=== PATIENT | male | born 1980 | race Caucasian/White ===

== ENCOUNTER → 2018-01-09 | Outpatient (CLI) | payer BC ==
--- NOTE | 2018-01-09 13:27 | Diagnostic Imaging Report ---
PROCEDURE: US Hepatic (Liver). TECHNIQUE: Multiple Real-time grayscale images were obtained over the right upper quadrant in various projections. INDICATION: Hepatitis C. FINDINGS: The liver is normal in size without focal lesions. There is no biliary ductal dilatation. The common bile duct is obscured. There is no cholelithiasis, gallbladder wall thickening, or pericholecystic fluid. The pancreas is not well-seen due to bowel gas. The right kidney is normal. There is no ascites. IMPRESSION: Unremarkable right upper quadrant ultrasound apart from obscuration of the pancreas and common bile duct due to bowel gas. Dictated by: Dictated on workstation # [id number]
== END ==
LOC: RAD 10:35
PROVIDERS: ATTEND Pediatrics
DX: B18.2 Chronic viral hepatitis C (principal)
CPT/HCPCS: 76705

== ENCOUNTER 2018-12-09 16:29 | Emergency (ER) | payer BC, MEDICAID ==
[~2018-12-09] VITALS: Ht 180.3 cm; Wt 133.8 kg
[2018-12-09] MEDS ORDERED: morphine INJ 10 MG/ML 1ML (SYR OR VIAL) IV STA (16:46)
[2018-12-09 16:52] LABS: BASOPHILS % (AUTO) 0 % (0-10); EOSINOPHILS # (AUTO) 0.3 10^3/uL (0.0-0.3); EOSINOPHILS % (AUTO) 2 % (0-10); HEMATOCRIT 46 % (40-54); HEMOGLOBIN 15.3 G/DL (13.3-17.7); LYMPHOCYTES # (AUTO) 2.8 X 10^3 (1.0-4.0); LYMPHOCYTES % (AUTO) 19 % (12-44); MEAN CORPUSCULAR HEMOGLOBIN 30 PG (25-34); MEAN CORPUSCULAR HGB CONC 34 G/DL (32-36); MEAN CORPUSCULAR VOLUME 89 FL (80-99); MEAN PLATELET VOLUME 11.3 FL (7.4-10.4); MONOCYTES # (AUTO) 0.9 X 10^3 (0.0-1.0); MONOCYTES % (AUTO) 6 % (0-12); NEUTROPHILS # (AUTO) 10.9 X 10^3 (1.8-7.8); NEUTROPHILS % (AUTO) 73 % (42-75); PLATELET COUNT 247 10^3/uL (130-400); RED CELL DISTRIBUTION WIDTH 13.6 % (10.0-14.5)
--- NOTE | 2018-12-09 16:53 | ED Chest Pain ---
General Chief Complaint: Chest Pain Stated Complaint: CHEST PAIN RADIATING TO BACK Nursing Triage Note: Patient ambulatory to room with complaint of chest pain to mid sternum radiating into the upper back. Patient describes the pain as a dull pain that is intermittent for the last several months. He states he has had a cough x 2 days that makes the chest pain worse. He did vomit x 1 yesterday due to coughing so hard. Patient states he does vape. Nursing Sepsis Screen: No Definite Risk Source: patient Exam Limitations: no limitations History of Present Illness Date Seen by Provider: Dec 09, 2018 Time Seen by Provider: 16:38 Initial Comments Here with report of central chest pain that radiates to his back and is associated with cough for the last 2 days. States that his cough and so bad that he is almost vomiting. The cough is causing headache. Notes that he's had increased blood pressure recently. Overall does not feel well. Does have history of hep C that's been cleared through meds. Also has history of hypertension. Seen in the clinic a few weeks ago and has follow-up appointment with Dr. Mai due to elevated CRP. There is also some question about increase fluid around the heart and he was given some water pills for a few days that did help. Vomited once yesterday. No fevers today. Complains of pain in the upper throat associated with cough. Timing/Duration: 2-3 days Severity/Quality: moderate, pressure, tightness Location: central Radiation: back Prior CP/Workup: echocardiography, stress test ASA po ELECTRONIC DEVICE MONITOR: No NTG SL ELECTRONIC DEVICE MONITOR: No Associated Symptoms: No abdominal pain; back pain; No diaphoresis; nausea/vomiting, shortness of breath; No weakness Allergies and Home Medications Allergies Coded Allergies: No Known Drug Allergies (Unverified , 12/09/18) Patient Home Medication List Home Medication List Reviewed: Yes Review of Systems Review of Systems Constitutional: see HPI; No chills, No fever EENTM: No Nose Congestion; Throat Pain Respiratory: Cough, Shortness of Air, Wheezing Cardiovascular: Chest Pain; Denies Edema Gastrointestinal: See HPI Genitourinary: No Symptoms Reported Musculoskeletal: see HPI Skin: no symptoms reported All Other Systems Reviewed Negative Unless Noted: Yes Past Qcmhruf-Ekhlsu-Bcqjrr Hx Past Med/Social Hx: Reviewed Nursing Past Med/Soc Hx Patient Social History Alcohol Use: Denies Use Recreational Drug Use: Yes Drug of Choice: cannibas Smoking Status: Current Everyday Smoker Type Used: Electronic/Vapor 2nd Hand Smoke Exposure: Yes Recent Foreign Travel: No Contact w/Someone Who Travel: No Recent Infectious Disease Expo: No Recent Hopitalizations: No Seasonal Allergies Seasonal Allergies: No Past Medical History Surgeries: Yes (MRSA skin ) Respiratory: No Cardiac: Yes Hypertension Neurological: No Genitourinary: No Gastrointestinal: No Musculoskeletal: No Endocrine: No HEENT: No Cancer: No Psychosocial: No Blood Disorders: No Family Medical History Reviewed Nursing Family Hx Physical Exam Vital Signs Vital Signs - First Documented 12/09/18 16:33 Temp 97.0 Pulse 80 Resp 16 B/P (MAP) 131/93 (106) Pulse Ox 99 O2 Delivery Room Air Capillary Refill : Less Than 3 Seconds Height, Weight, BMI Height: 5'11.00" Weight: 295lbs. oz. 133.890078gn; BMI Method:Stated General Appearance: WD/WN, Mild Distress HEENT: PERRL/EOMI, Pharyngeal Erythema Neck: Full Range of Motion, Normal Inspection, Non Tender, Supple Respiratory: No Respiratory Distress, Expiration, Wheezing (trace scattered) Cardiovascular: Regular Rate, Rhythm, No Murmur Gastrointestinal: Non Tender, Soft Extremity: Normal Range of Motion, Non Tender Neurologic/Psychiatric: Alert, Oriented x3 Skin: Normal Color, Warm/Dry Progress/Results/Core Measures Results/Orders Lab Results Laboratory Tests Test 12/09/18 16:35 12/09/18 18:31 Range/Units White Blood Count 15.0 H 4.3-11.0 10^3/uL Red Blood Count 5.13 4.35-5.85 10^6/uL Hemoglobin 15.3 13.3-17.7 G/DL Hematocrit 46 40-54 % Mean Corpuscular Volume 89 80-99 FL Mean Corpuscular Hemoglobin 30 25-34 PG Mean Corpuscular Hemoglobin Concent 34 32-36 G/DL Red Cell Distribution Width 13.6 10.0-14.5 % Platelet Count 247 130-400 10^3/uL Mean Platelet Volume 11.3 H 7.4-10.4 FL Neutrophils (%) (Auto) 73 42-75 % Lymphocytes (%) (Auto) 19 12-44 % Monocytes (%) (Auto) 6 0-12 % Eosinophils (%) (Auto) 2 0-10 % Basophils (%) (Auto) 0 0-10 % Neutrophils # (Auto) 10.9 H 1.8-7.8 X 10^3 Lymphocytes # (Auto) 2.8 1.0-4.0 X 10^3 Monocytes # (Auto) 0.9 0.0-1.0 X 10^3 Eosinophils # (Auto) 0.3 0.0-0.3 10^3/uL Basophils # (Auto) 0.0 0.0-0.1 10^3/uL Neutrophils % (Manual) 68 % Lymphocytes % (Manual) 19 % Monocytes % (Manual) 7 % Eosinophils % (Manual) 3 % Basophils % (Manual) 0 % Band Neutrophils 3 % Spherocytes SLIGHT Prothrombin Time 12.7 12.2-14.7 SEC INR Comment 0.9 0.8-1.4 Activated Partial Thromboplast Time 31 24-35 SEC D-Dimer 0.38 0.00-0.49 UG/ML Sodium Level 139 135-145 MMOL/L Potassium Level 3.8 3.6-5.0 MMOL/L Chloride Level 100 98-107 MMOL/L Carbon Dioxide Level 25 21-32 MMOL/L Anion Gap 14 5-14 MMOL/L Blood Urea Nitrogen 14 7-18 MG/DL Creatinine 1.36 H 0.60-1.30 MG/DL Estimat Glomerular Filtration Rate 58 BUN/Creatinine Ratio 10 Glucose Level 91 70-105 MG/DL Calcium Level 10.3 H 8.5-10.1 MG/DL Corrected Calcium 8.5-10.1 MG/DL Magnesium Level 2.1 1.6-2.4 MG/DL Total Bilirubin 0.8 0.1-1.0 MG/DL Aspartate Amino Transf (AST/SGOT) 20 5-34 U/L Alanine Aminotransferase (ALT/SGPT) 21 0-55 U/L Alkaline Phosphatase 80 40-136 U/L Myoglobin 106.1 H 75.0 10.0-92.0 NG/ML Troponin I < 0.028 < 0.028 <0.028 NG/ML C-Reactive Protein High Sensitivity 2.23 H 0.00-0.50 MG/DL B-Type Natriuretic Peptide < 10.0 <100.0 PG/ML Total Protein 9.1 H 6.4-8.2 GM/DL Albumin 5.1 H 3.2-4.5 GM/DL My Orders Orders - JACKLEINE THOMAS MD Albuterol/Ipra Inhalation Soln (Duoneb I (12/09/18 17:00) Cbc With Automated Diff (12/09/18 16:46) Magnesium (12/09/18 16:46) Chest 1 View, Ap/Pa Only (12/09/18 16:46) Ekg Tracing (12/09/18 16:46) Cardiac Profile 1 (12/09/18 16:46) Comprehensive Metabolic Panel (12/09/18 16:46) Myoglobin Serum (12/09/18 16:46) Protime With Inr (12/09/18 16:46) Partial Thromboplastin Time (12/09/18 16:46) O2 (12/09/18 16:46) Monitor-Rhythm Ecg Trace Only (12/09/18 16:46) Lipid Panel (12/10/18 06:00) Ed Iv/Invasive Line Start (12/09/18 16:46) BNP (12/09/18 16:46) Fibrin Degradation Products (12/09/18 16:46) Aspirin Chewable Tablet (Baby Aspirin Ch (12/09/18 17:00) Morphine Injection (Morphine Injection (12/09/18 16:46) Svn Small Volume Nebulizer (12/09/18 16:46) Manual Differential (12/09/18 16:35) Hs C Reactive Protein (12/09/18 17:42) Fentanyl Injection (Sublimaze Injection (12/09/18 17:42) Ketorolac Injection (Toradol Injection) (12/09/18 17:42) Ns Iv 1000 Ml (Sodium Chloride 0.9%) (12/09/18 17:42) Myoglobin Serum (12/09/18 18:20) Troponin I (12/09/18 18:20) Lortab 7.5 Mg Po (12/09/18 19:28) Vibramycin 100mg Po (12/09/18 19:28) Prednisone Tablet (Deltasone Tablet) (12/09/18 19:30) Medications Given in ED Current Medications Medications Dose Ordered Sig/Angelo Route Start Time Stop Time Status Last Admin Dose Admin Albuterol/ Ipratropium 3 ml ONCE ONCE INH 12/09/18 17:00 12/09/18 17:01 DC 12/09/18 16:54 3 ML Aspirin 324 mg ONCE ONCE PO 12/09/18 17:00 12/09/18 17:01 DC 12/09/18 17:01 324 MG Vital Signs/I&O 12/09/18 12/09/18 12/09/18 16:33 16:48 16:54 Temp 97.0 Pulse 80 Resp 16 B/P (MAP) 131/93 (106) Pulse Ox 99 97 O2 Delivery Room Air Room Air Room Air Blood Pressure Mean: 106 Progress Progress Note : Progress Note Seen and evaluated. IV, labs, EKG and chest x-ray ordered. ASA 324 mg by mouth ordered. Duo neb ordered. Morphine 2 mg IV ordered. Monitor patient. Morphine did not help his pain. Toradol 30 mg IV and fentanyl 50 g IV ordered. Normal saline 1 L bolus ordered. Monitor patient. 1834: Repeat labs ordered. Monitor patient. 1929: Patient actually doing a little better. Repeat labs negative with troponin remained negative and myoglobin decreasing. I have talked with the patient at length regarding his symptoms and findings. Likely bronchitis related given cough. We will initiate prednisone 40 mg by mouth as well as doxycycline 100 mg by mouth. Lortab 7.5 one tab by mouth given. Discharged home with return precautions. Patient verbalize understanding instructions and agreement with plan. Initial ECG Impression Date: Dec 09, 2018 Initial ECG Impression Time: 16:32 Initial ECG Rate: 78 Initial ECG Rhythm: Normal Sinus Initial ECG Comparisson: No Previous ECG Available Comment Sinus rhythm with normal axis. No evidence of ST elevation [place]. No previous available for comparison. Interpreted by me. Diagnostic Imaging Diagonstic Imaging: Xray Plain Films/CT/US/NM/MRI: chest Comments NAME: CHRISTOPHERYONATHAN Orta MED REC#: [id number] PT STATUS: REG ER : 1980 PHYSICIAN: JACKELINE THOMAS MD ADMIT DATE: 12/09/18/ER Draft Date of Exam:12/09/18 CHEST 1 VIEW, AP/PA ONLY INDICATION: Mid sternal chest pain radiating to the back. Patient reports symptoms for several months. Cough. FINDINGS: Lungs demonstrate no focal infiltrate or consolidation. There is no evidence of an effusion. There is no pneumothorax. Heart size and mediastinal contours appear appropriate. There is no mediastinal widening. The central pulmonary vascularity appears normal. There is no acute or suspicious osseous abnormality evident. IMPRESSION: 1. No radiographic evidence of an acute cardiopulmonary process. Dictated on workstation # [id number] Dict: 12/09/18 1713 Trans: 12/09/18 1716 [id number] Interpreted by: SHRUTHI LUIS MD Electronically signed by: Departure Impression Primary Impression: Bronchitis Additional Impression: Chest wall pain Disposition: ADMITTED INPATIENT Condition: Stable Departure-Patient Inst. Decision time for Depature: 19:35 Referrals: ABIMAEL REEDER (PCP/Family) Primary Care Physician Patient Instructions: Acute Bronchitis, Adult (DC), Chest Pain (DC) Add. Discharge Instructions: All discharge instructions reviewed with patient and/or family. Voiced understanding. You may take ibuprofen 800 mg every 8 hours as needed for pain. You may also take Tylenol/acetaminophen 1000 mg every 8 hours as needed for pain. Drink plenty of fluids. Take medications as directed. Follow-up with your Dr. in a few days for recheck. Return for worse pain, fever, vomiting, weakness, breathing problems or other concerns as needed. Scripts Albuterol Sulfate (PROAIR HFA) 1 Puff Puff 2 PUFF IH Q4H PRN for WHEEZING, #1 INHALER 0 Refills 1 PUFF = 90 MCG Prov: JACKELINE THOMAS MD 12/09/18 Prednisone (Prednisone) 20 Mg Tab 40 MG PO DAILY, #10 TAB 0 Refills Prov: JACKELINE THOMAS MD 12/09/18 Doxycycline Hyclate (Doxycycline Hyclate) 100 Mg Tablet 100 MG PO BID, #20 TAB 0 Refills Prov: JACKELINE THOMAS MD 12/09/18 Copy Copies To 1: GWYN ROJAS DO Copies To 2: MAGDI MAI MD, TIMOTHY D MD Dec 09, 2018 16:53
[2018-12-09] MEDS ORDERED: ASPIRIN 81 MG CHEW (CHILDREN'S ASA) PO ONE (17:00)
[2018-12-09] MEDS ORDERED: RT-ALBUTEROL/IPRATROPIUM 3 ML (DUONEB) VIAL INH ONE (17:00)
[2018-12-09 17:02] LABS: INR 0.9 (0.8-1.4); PROTHROMBIN TIME PATIENT 12.7 SEC (12.2-14.7)
[2018-12-09 17:07] LABS: ALANINE AMINOTRANSFERASE 21 U/L (0-55); ALBUMIN 5.1 GM/DL (3.2-4.5); ALKALINE PHOSPHATASE 80 U/L (40-136); BILIRUBIN,TOTAL 0.8 MG/DL (0.1-1.0); BUN/CREATININE RATIO 10; CALCIUM 10.3 MG/DL (8.5-10.1); CARBON DIOXIDE 25 MMOL/L (21-32); CHLORIDE 100 MMOL/L (98-107); CREATININE SERUM 1.36 MG/DL (0.60-1.30); GFR ESTIMATED 58; GLUCOSE 91 MG/DL (70-105); MAGNESIUM 2.1 MG/DL (1.6-2.4); POTASSIUM 3.8 MMOL/L (3.6-5.0); SODIUM 139 MMOL/L (135-145); TOTAL PROTEIN 9.1 GM/DL (6.4-8.2)
[2018-12-09 17:13] LABS: BAND NEUTROPHILS 3 %; BASOPHILS % (MANUAL) 0 %; EOSINOPHILS % (MANUAL) 3 %; LYMPHOCYTES % (MANUAL) 19 %; MONOCYTES % (MANUAL) 7 %; NEUTROPHILS % (MANUAL) 68 %
[2018-12-09 17:14] LABS: SPHEROCYTES SLIGHT
--- NOTE | 2018-12-09 17:17 | Diagnostic Imaging Report ---
INDICATION: Mid sternal chest pain radiating to the back. Patient reports symptoms for several months. Cough. FINDINGS: Lungs demonstrate no focal infiltrate or consolidation. There is no evidence of an effusion. There is no pneumothorax. Heart size and mediastinal contours appear appropriate. There is no mediastinal widening. The central pulmonary vascularity appears normal. There is no acute or suspicious osseous abnormality evident. IMPRESSION: 1. No radiographic evidence of an acute cardiopulmonary process. Dictated by: Dictated on workstation # [id number]
[2018-12-09] MEDS ORDERED: NS IV 1000 ML 1,000 ML IV STA (17:42)
[2018-12-09] MEDS ORDERED: fentaNYL INJECTION 100 MCG/2 ML AMP IVP STA (17:42)
[2018-12-09] MEDS ORDERED: KETOROLAC 30 MG/ML VIAL IVP STA (17:42)
--- NOTE | 2018-12-09 18:35 | NUR ---
Blood drawn for repeat labs.
[2018-12-09] MEDS ORDERED: HYDROcodone/APAP 7.5 MG/325 MG (LORTAB, LORCET PLUS) TABLET PO STA (19:28)
[2018-12-09] MEDS ORDERED: DOXYCYCLINE 100 MG (VIBRAMYCIN) TABLET PO STA (19:28)
[2018-12-09] MEDS ORDERED: predniSONE 20 MG TAB PO ONE (19:30)
[2018-12-09] MEDS ORDERED: DOXY100T2 PO (19:37)
[2018-12-09] MEDS ORDERED: RT-ALBUINH IH (19:37)
[2018-12-09] MEDS ORDERED: PRD20T PO (19:37)
[2018-12-09 19:41] VITALS: BP 119/75
== END 2018-12-09 19:41 | disposition home or self-care (01) ==
LOC: EDUNIT# 16:29 → ER 16:31
DX: J40 Bronchitis, not specified as acute or chronic (principal); B19.20 Unspecified viral hepatitis C without hepatic coma; I10 Essential (primary) hypertension; F17.290 Nicotine dependence, other tobacco product, uncomplicated
CPT/HCPCS: 36415; 71045; 80053; 83735; 83874; 83880; 84484; 85007; 85027; 85379; 85610; 85730; 86141; 93005; 94640; 96361; 96374; 96375

== ENCOUNTER → 2019-01-22 | Outpatient (CLI) | payer MEDICAID ==
[~2019-01-22] VITALS: Ht 71 cm; Wt 136.0 kg
[~2019-01-22] MED LIST: CATHETER FLUSH 10 ML SYR IV PRN; DOXY100T2 PO; PRD20T PO; RT-ALBUINH IH
[2019-01-22 09:31] VITALS: BP 112/77
--- NOTE | 2019-01-22 14:30 | STRESS TEST ---
DATE OF SERVICE: 01/22/2019 EXERCISE MYOVIEW STRESS TEST REFERRING PHYSICIAN: Dr. Manohar Rangle Baseline heart rate is 63, baseline blood pressure 102/79. Baseline EKG is sinus rhythm with no ischemic changes. In summary, the patient was injected with 10.43 mCi of technetium-99 Myoview and the resting images were obtained. Then, the patient started exercising with a baseline heart rate, blood pressure and EKG mentioned above. The patient exercised for a total of 8 minutes on standard Jeff protocol. With peak exercise level, EKG was showing nondiagnostic changes. Blood pressure is 172/81. The patient was injected with 28.7 mCi of technetium-99 Myoview. During recovery, heart rate and blood pressure returned to baseline. EKG returned to baseline. The resting and stress images were reviewed and compared in the short axis, horizontal long axis, and vertical long axis views. Review of the images showed diaphragmatic attenuation with typical male pattern. No significant ischemia or infarction. SSS is 0. TID value is 0.94. On the gated images, the left ventricle appeared to be normal size with normal contractility. Calculated ejection fraction is 54%. CONCLUSION: 1. Fair exercise tolerance, a total of 8 minutes on standard Jeff protocol, total of 9.5 METs achieving 90% of maximum expected heart rate. 2. Appropriate heart rate and blood pressure response to exercise returned to baseline during recovery. 3. Nondiagnostic EKG changes with exercise returned to baseline during recovery. 4. Typical male pattern with no ischemia or infarction on SPECT images. 5. Normal left ventricular size with normal contractility. Calculated ejection fraction is 54%. Job ID: [id number] DocumentID: [id number] Dictated Date: 01/22/2019 12:28:19 Business Assistant Date: 01/22/2019 14:29:37 Dictated By: MAGDI BUCIO MD
== END ==
LOC: CARD 07:39
PROVIDERS: ATTEND Internal Medicine Cardiovascular Disease
DX: I10 Essential (primary) hypertension (principal); R07.9 Chest pain, unspecified; Z72.0 Tobacco use
CPT/HCPCS: 78452; 93017; 93306

== ENCOUNTER 2019-12-12 21:14 | Outpatient (CLI) | payer MEDICAID ==
[~2019-12-12 21:14] MED LIST changes: -CATHETER FLUSH 10 ML SYR IV PRN
== END 2019-12-13 07:05 | disposition home or self-care (01) ==
LOC: SLEEP 21:14
PROVIDERS: ATTEND Nurse Practitioner Community Health
DX: G47.33 Obstructive sleep apnea (adult) (pediatric) (principal); G47.10 Hypersomnia, unspecified; G47.00 Insomnia, unspecified; G47.419 Narcolepsy without cataplexy; F39 Unspecified mood [affective] disorder; Z20.828 Contact with and (suspected) exposure to other viral communicable diseases
CPT/HCPCS: 95810

== ENCOUNTER 2023-03-03 19:33 | Emergency (ER) | payer MEDICAID, OTHER ==
[~2023-03-03] VITALS: Ht 180.3 cm; Wt 131.5 kg
[~2023-03-03 19:33] MED LIST changes: +ALBU8.5H6 IH; -RT-ALBUINH IH
[2023-03-03] MEDS ORDERED: ASPIRIN 81 MG CHEWABLE TABLET PO ONE (19:45)
[2023-03-03] MEDS ORDERED: NITROGLYCERIN 0.4 MG SL TABLETS BTL 25'S SL ONE (19:54)
[2023-03-03 19:59] LABS: BASOPHILS # (AUTO) 0.1 10^3/uL (0.0-0.1); BASOPHILS % (AUTO) 0 % (0-10); EOSINOPHILS # (AUTO) 0.1 10^3/uL (0.0-0.3); EOSINOPHILS % (AUTO) 1 % (0-10); HEMATOCRIT 45 % (40-54); LYMPHOCYTES % (AUTO) 22 % (12-44); MEAN CORPUSCULAR HEMOGLOBIN 30 pg (25-34); MEAN CORPUSCULAR HGB CONC 34 g/dL (32-36); MEAN CORPUSCULAR VOLUME 91 fL (80-99); MONOCYTES # (AUTO) 0.9 10^3/uL (0.0-1.0); MONOCYTES % (AUTO) 6 % (0-12); NEUTROPHILS # (AUTO) 9.6 10^3/uL (1.8-7.8); NEUTROPHILS % (AUTO) 70 % (42-75); PLATELET COUNT 261 10^3/uL (130-400); WHITE BLOOD COUNT 13.7 10^3/uL (4.3-11.0)
[2023-03-03] MEDS ORDERED: NITROGLYCERIN 0.4 MG SL TABLETS BTL 25'S SL PRN (20:00)
--- NOTE | 2023-03-03 20:13 | ED Chest Pain ---
General Chief Complaint: Chest Wall Stated Complaint: CHEST PAIN Nursing Triage Note: PT AMB TO [facility] 5 FROM [facility] W C/O DULL CP X2-3 DAYS THAT RADIATES TO LEFT SIDE NECK, BACK, AND SHOULDER. PT A&OX4. Source: patient History of Present Illness Date Seen by Provider: Mar 03, 2023 Time Seen by Provider: 19:40 Initial Comments PT ARRIVES VIA POV --SENT HERE FROM [facility]. C/O CHEST PAIN FOR THE LAST 3 DAYS PAIN IS IN LEFT CHEST, GOES TO LEFT SHOULDER, LEFT UPPER BACK, AND LEFT LATERAL NECK RATES PAIN 3/10 AT THIS TIME, IS WORSE AT TIMES PAIN IS CONSTANT, SOMETIMES WORSE WITH MOVEMENTS BUT NOT ALWAYS NO SHORTNESS OF BREATH NO SWEATS NO SWELLING IN LEGS/FEET OR PAIN IN CALVES NO DIZZINESS OR SYNCOPE NO PALPITATIONS NO CURRENT NAUSEA/VOMITING. HE HAD NAUSEA FOR 1-2 HOURS A FEW DAYS AGO, BUT NONE SINCE THEN NO HISTORY OF SIMILAR PT HAS HTN AND TAKES HCTZ. HE MISSED A FEW DOSES LAST WEEK AND OVER THE WEEKEND--RAN OUT. RESTARTED ON Tuesday03/01/23 STATES HIS BP NORMALLY IS 130'S-140'S SYSTOLIC, BUT LATELY IT HAS BEEN IN 160'S SYSTOLIC DENIES ANY OTHER MEDICAL PROBLEMS PCP: [facility] Allergies and Home Medications Allergies Coded Allergies: No Known Drug Allergies (Unverified , 12/09/18) Patient Home Medication List Albuterol Sulfate (Ventolin Hfa) 1 Puff Puff, 2 PUFF IH Q4H PRN for WHEEZING Prescribed by: JACKELINE THOMAS on 12/09/181936 Doxycycline Hyclate (Doxycycline Hyclate) 100 Mg Tablet, 100 MG PO BID Prescribed by: JACKELINE THOMAS on 12/09/181936 Prednisone (Prednisone) 20 Mg Tab, 40 MG PO DAILY Prescribed by: JACKELINE THOMAS on 12/09/181936 Past Buqgawp-Kdlpjb-Bdduro Hx Patient Social History Tobacco Use?: No Use of E-Cig and/or Vaping dev: Yes E-Cig or Vaping type used: Nicotine Use of E-Cig and/or Vaping Thony: Current Everyday User Substance use?: Yes Substance type: Marijuana, Other Additional substance use comme: DELTA 8 Alcohol Use?: Yes Alcohol Frequency: Rarely Seasonal Allergies Seasonal Allergies: No Past Medical History Surgery/Hospitalization HX: HTN Surgeries: Yes (MRSA skin ) Respiratory: No Cardiac: Yes Hypertension Neurological: No Genitourinary: No Gastrointestinal: No Musculoskeletal: No Endocrine: No HEENT: No Cancer: No Psychosocial: No Blood Disorders: No Physical Exam Vital Signs Vital Signs - First Documented 03/03/23 19:38 Temp 36.3 Pulse 80 Resp 18 B/P (MAP) 129/103 (112) Pulse Ox 99 O2 Delivery Room Air Capillary Refill : Less Than 3 Seconds Height, Weight, BMI Height: 5'11.00" Weight: 295lbs. oz. 133.273283pk; 40.00 BMI Method:Stated General Appearance: No Apparent Distress, WD/WN, Obese HEENT: PERRL/EOMI Neck: Full Range of Motion, Normal Inspection, Non Tender, Supple; No Carotid Bruit, No JVD Respiratory: Chest Non Tender, Normal Breath Sounds, No Accessory Muscle Use, No Respiratory Distress Cardiovascular: Regular Rate, Rhythm, No Edema, No JVD, No Murmur, Normal Peripheral Pulses Gastrointestinal: Non Tender, Soft Extremity: Normal Capillary Refill, Normal Inspection, Normal Range of Motion, Non Tender, No Calf Tenderness, No Pedal Edema Neurologic/Psychiatric: Alert, Oriented x3, No Motor/Sensory Deficits, Normal 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 FULL ROM WITHOUT DIFFICULTY Progress/Results/Core Measures Results/Orders Lab Results Laboratory Tests Test 03/03/23 19:51 03/03/23 20:02 Range/Units White Blood Count 13.7 H 4.3-11.0 10^3/uL Red Blood Count 4.94 4.30-5.52 10^6/uL Hemoglobin 15.0 13.3-17.7 g/dL Hematocrit 45 40-54 % Mean Corpuscular Volume 91 80-99 fL Mean Corpuscular Hemoglobin 30 25-34 pg Mean Corpuscular Hemoglobin Concent 34 32-36 g/dL Red Cell Distribution Width 12.9 10.0-14.5 % Platelet Count 261 130-400 10^3/uL Mean Platelet Volume 11.0 9.0-12.2 fL Immature Granulocyte % (Auto) 0 % Neutrophils (%) (Auto) 70 42-75 % Lymphocytes (%) (Auto) 22 12-44 % Monocytes (%) (Auto) 6 0-12 % Eosinophils (%) (Auto) 1 0-10 % Basophils (%) (Auto) 0 0-10 % Neutrophils # (Auto) 9.6 H 1.8-7.8 10^3/uL Lymphocytes # (Auto) 3.0 1.0-4.0 10^3/uL Monocytes # (Auto) 0.9 0.0-1.0 10^3/uL Eosinophils # (Auto) 0.1 0.0-0.3 10^3/uL Basophils # (Auto) 0.1 0.0-0.1 10^3/uL Immature Granulocyte # (Auto) 0.0 0.0-0.1 10^3/uL Prothrombin Time 13.4 12.2-14.7 SEC INR Comment 1.0 0.8-1.4 Activated Partial Thromboplast Time 31 24-35 SEC D-Dimer 0.29 0.00-0.49 UG/ML Sodium Level 136 135-145 MMOL/L Potassium Level 3.9 3.6-5.0 MMOL/L Chloride Level 99 98-107 MMOL/L Carbon Dioxide Level 25 21-32 MMOL/L Anion Gap 12 5-14 MMOL/L Blood Urea Nitrogen 11 7-18 MG/DL Creatinine 1.16 0.60-1.30 MG/DL Estimat Glomerular Filtration Rate 80 BUN/Creatinine Ratio 9 Glucose Level 90 70-105 MG/DL Calcium Level 10.0 8.5-10.1 MG/DL Corrected Calcium 8.5-10.1 MG/DL Magnesium Level 2.2 1.6-2.4 MG/DL Total Bilirubin 0.8 0.1-1.0 MG/DL Aspartate Amino Transf (AST/SGOT) 20 5-34 U/L Alanine Aminotransferase (ALT/SGPT) 23 0-55 U/L Alkaline Phosphatase 80 40-136 U/L Total Creatine Kinase 117 30-200 U/L Creatine Kinase MB 1.1 <6.6 NG/ML Myoglobin 46.1 10.0-92.0 NG/ML Troponin I < 0.028 <0.028 NG/ML B-Type Natriuretic Peptide < 10.0 <100.0 PG/ML Total Protein 8.2 6.4-8.2 GM/DL Albumin 4.6 H 3.2-4.5 GM/DL Amylase Level 59 25-125 U/L Lipase 12 8-78 U/L Influenza Type A (RT-PCR) Not Detected Not Detecte Influenza Type B (RT-PCR) Not Detected Not Detecte SARS-CoV-2 RNA (RT-PCR) Not Detected Not Detecte My Orders Orders - DEVAUGHN SWANSON DO Ekg Tracing (03/03/23 19:38) Cbc And Automated Diff (03/03/23 19:40) Magnesium (03/03/23 19:40) Chest 1 View, Ap/Pa Only (03/03/23 19:40) Ekg Tracing (03/03/23 19:40) Comprehensive Metabolic Panel (03/03/23 19:40) Myoglobin Serum (03/03/23 19:40) Protime With Inr (03/03/23 19:40) Partial Thromboplastin Time (03/03/23 19:40) O2 (03/03/23 19:40) Monitor-Rhythm Ecg Trace Only (03/03/23 19:40) Ed Iv/Invasive Line Start (03/03/23 19:40) Creatine Kinase (03/03/23 19:40) Creatine Kinase Mb (03/03/23 19:40) Lipase (03/03/23 19:40) Amylase (03/03/23 19:40) Bnp Rosalie (03/03/23 19:40) Fibrin Degradation Products (03/03/23 19:40) Troponin I Rosalei (03/03/23 19:40) Aspirin Chewable Tablet (Aspirin Chewabl (03/03/23 19:45) Covid 19 Inhouse Test (03/03/23 19:40) Influenza A And B By Pcr (03/03/23 19:40) Nitroglycerin 0.4 Mg Btl 25's (Nitroglyc (03/03/23 20:00) Nitroglycerin 0.4 Mg Btl 25's (Nitroglyc (03/03/23 19:54) Ct Angio Chest W (R/O Pe) (03/03/23 20:48) Iohexol Injection (Omnipaque 350 Mg/Ml 1 (03/03/23 21:00) Received Contrast (Hold Metformin- Contr (03/03/23 21:00) Ns (Ivpb) 100 Ml (Sodium Chloride 0.9% 1 (03/03/23 21:00) Medications Given in ED Current Medications Medications Dose Ordered Sig/Angelo Route Start Time Stop Time Status Last Admin Dose Admin Aspirin 324 mg ONCE ONCE PO 03/03/23 19:45 03/03/23 19:46 DC 03/03/23 19:57 324 MG Iohexol 100 ml ONCE ONCE IV 03/03/23 21:00 03/03/23 21:01 DC 03/03/23 21:01 90 ML Nitroglycerin 1 TAB Q 5 MIN X 3 NEEDED PRN SL 03/03/23 20:00 03/03/23 19:57 0.4 MG Sodium Chloride 100 ml ONCE ONCE IV 03/03/23 21:00 03/03/23 21:01 DC 03/03/23 21:01 70 ML Vital Signs/I&O 03/03/23 19:38 Temp 36.3 Pulse 80 Resp 18 B/P (MAP) 129/103 (112) Pulse Ox 99 O2 Delivery Room Air Blood Pressure Mean: 112 Progress Progress Note : Progress Note NO RELIEF WITH NTG X 1, DECLINES OTHER PAIN MEDICATIONS PT STILL RATES PAIN 3/10 RECOMMENDED ADMIT FOR FURTHER EVALUATION AND TREATMENT AND PT DECLINES. STATES HE WILL FOLLOW UP OUTPATIENT. REFUSAL OF ADMIT/AMA PAPERS SIGNED Diagnostic Imaging Comments CXR--PER RADIOLOGIST REPORT AT 2039 EXAMINATION: Portable chest at 8:09 PM. FINDINGS: Heart size and pulmonary vascularity are normal. Lungs are clear. There is no effusion or pneumothorax. IMPRESSION: No acute abnormality in the chest. CT CHEST ANGIOGRAM--PER RADIOLOGIST REPORT AT 2119 FINDINGS: CTA CHEST: Thin axial sections through the chest were obtained following intravenous contrast bolus. Multiplanar MIP images were reconstructed and reviewed. Lungs are clear. There is no effusion or pneumothorax. There is no pulmonary embolus. There is no right ventricular strain. Aorta is unremarkable. IMPRESSION: Unremarkable CTA chest. Reviewed: Reviewed by Me Departure Impression Primary Impression: Chest pain Disposition: AGAINST MEDICAL ADVICE Condition: Against Medical Advice Departure-Patient Inst. Decision time for Depature: 21:30 Referrals: NO,LOCAL PHYSICIAN (PCP) Primary Care Physician ABIMAEL REEDER (Family) Primary Care Physician VIVIENNE BELL MD FACP FACC CCDS MAGDI BUCIO MD Patient Instructions: Chest Pain (DC), Chest Pain, Adult ED, Leaving Against Medical Advice Add. 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 BUCIO OR DR. BELL-- SOON POSSIBLE RETURN TO ER IF SYMPTOMS WORSEN All discharge instructions reviewed with patient and/or family. Voiced understan ding. DEVAUGHN SWANSON DO Mar 03, 2023 20:13
[2023-03-03 20:18] LABS: PROTHROMBIN TIME PATIENT 13.4 SEC (12.2-14.7)
[2023-03-03 20:21] LABS: FIBRIN DEGRADATION PRODUCTS 0.29 UG/ML (0.00-0.49)
--- NOTE | 2023-03-03 20:27 | Diagnostic Imaging Report ---
INDICATION: Substernal chest pain. EXAMINATION: Portable chest at 8:09 PM. FINDINGS: Heart size and pulmonary vascularity are normal. Lungs are clear. There is no effusion or pneumothorax. IMPRESSION: No acute abnormality in the chest. Dictated by: Dictated on workstation # [id number]
[2023-03-03 20:37] LABS: ALANINE AMINOTRANSFERASE 23 U/L (0-55); ALBUMIN 4.6 GM/DL (3.2-4.5); ALKALINE PHOSPHATASE 80 U/L (40-136); AMYLASE 59 U/L (25-125); BILIRUBIN,TOTAL 0.8 MG/DL (0.1-1.0); BUN/CREATININE RATIO 9; CARBON DIOXIDE 25 MMOL/L (21-32); CHLORIDE 99 MMOL/L (98-107); CREATINE KINASE 117 U/L (30-200); CREATININE SERUM 1.16 MG/DL (0.60-1.30); GFR ESTIMATED 80; GLUCOSE 90 MG/DL (70-105); LIPASE 12 U/L (8-78); MAGNESIUM 2.2 MG/DL (1.6-2.4); POTASSIUM 3.9 MMOL/L (3.6-5.0); SODIUM 136 MMOL/L (135-145); TOTAL PROTEIN 8.2 GM/DL (6.4-8.2)
[2023-03-03 20:43] LABS: CREATINE KINASE MB 1.1 NG/ML (<6.6)
[2023-03-03] MEDS ORDERED: HOLD METFORMIN - RECEIVED CONTRAST 20 ML VIAL IV SCH (21:00)
[2023-03-03] MEDS ORDERED: NS 100 ML (IVPB) BAG IV ONE (21:00)
[2023-03-03] MEDS ORDERED: IOHEXOL 350 MG/ML 100 ML (OMNIPAQUE 350) VIAL IV ONE (21:00)
--- NOTE | 2023-03-03 21:18 | Diagnostic Imaging Report ---
INDICATION: Dull chest pain radiating to left shoulder pain. FINDINGS: CTA CHEST: Thin axial sections through the chest were obtained following intravenous contrast bolus. Multiplanar MIP images were reconstructed and reviewed. Lungs are clear. There is no effusion or pneumothorax. There is no pulmonary embolus. There is no right ventricular strain. Aorta is unremarkable. IMPRESSION: Unremarkable CTA chest. Dictated by: Dictated on workstation # [id number]
[2023-03-03 21:41] VITALS: BP 131/99
== END 2023-03-03 21:41 | disposition left against medical advice (07) ==
LOC: EDUNIT# 19:33 → ER 19:36
DX: R07.89 Other chest pain (principal); I10 Essential (primary) hypertension; F17.290 Nicotine dependence, other tobacco product, uncomplicated; Z79.899 Other long term (current) drug therapy
CPT/HCPCS: 36415; 71045; 71275; 80053; 82150; 82550; 82553; 83690; 83735; 83874; 83880; 84484; 85025; 85379; 85610; 85730; 87636; 93005; 93041

== ENCOUNTER → 2023-03-08 | Outpatient (CLI) | payer OTHER | LOC: LAB 14:08 | PROVIDERS: ATTEND Physician Assistant | DX: D72.829 Elevated white blood cell count, unspecified (principal) | CPT/HCPCS: 87040 ==